=== PATIENT | male | born 1935 | race Hispanic/Latino ===

== ENCOUNTER 2018-11-23 12:11 | Inpatient (IN) | payer OTHER | END 2018-12-01 14:28 | LOC: EDH 12:11 → 3AH 11-24 21:09 → EDHIP 15:37 → 3AH 23:49 | DX: C15.9 Malignant neoplasm of esophagus, unspecified (principal); E46 Unspecified protein-calorie malnutrition; K40.90 Unilateral inguinal hernia, without obstruction or gangrene, not specified as recurrent; R10.9 Unspecified abdominal pain; K74.60 Unspecified cirrhosis of liver; F03.90 Unspecified dementia, unspecified severity, without behavioral disturbance, psychotic disturbance, mood disturbance, and anxiety; D70.9 Neutropenia, unspecified; R13.10 Dysphagia, unspecified ==